=== PATIENT | male | born 1995 | race African-American/Black ===

== ENCOUNTER 2020-10-08 16:14 | Emergency (ER) | payer OTHER ==
[~2020-10-08] VITALS: Ht 177.8 cm; Wt 75.7 kg
--- NOTE | 2020-10-08 17:02 | NUR ---
Patient said that he has been feeling the COVID symptoms since 10/04/20. He is maintained on droplet isolation and continuous SpO2 monitor.
--- NOTE | 2020-10-08 17:18 | NUR ---
Afternoon snacks provided. Isolation maintained.
--- NOTE | 2020-10-08 17:54 | NUR ---
Patient discharged to home in stable condition. Written and verbal after care instructions given to patient. Patient verbalized understanding & compliance of instructions. Stressed follow up with primary doctor or return to ER for worsening s/s.
== END 2020-10-08 18:01 | disposition home or self-care (01) ==
LOC: ER 16:21
DX: U07.1 COVID-19 (principal)
CPT/HCPCS: A4663